=== PATIENT | female | born 1965 | race Asian ===

== ENCOUNTER 2016-05-12 19:06 | Emergency (ER) | payer BC, OTHER ==
[~2016-05-12] VITALS: Ht 167.6 cm; Wt 70.3 kg
[2016-05-12 19:15] VITALS: BP 137/94; PULSE 105; RESP 16; TEMP 98.2; O2SAT 98
--- NOTE | 2016-05-12 19:45 | NUR ---
Pt came in for cough, runny nose, body aches, low appetite and fever for four days. Pt rates her headache 09/21. Will continue to monitor. AAOx4. No distress noted.
--- NOTE | 2016-05-12 19:45 | NUR ---
Placed in hallway.
--- NOTE | 2016-05-12 19:45 | NUR ---
ER CURTAIN INSPECTOR assessing pt.
--- NOTE | 2016-05-12 19:45 | NUR ---
Note al in EDM - 05/13/16 at 0513 by BERENICE Pt came in for cough, runny nose, body aches, low appettite and fever for four days. Pt rates her headache 09/21. Will continue to monitor. AAOx4. No distress noted.
[2016-05-12] MEDS ORDERED: AMOXICILLIN/CLAVULANATE POTASSIUM 875 MG TABLET PO ONE (20:00)
[2016-05-12] MEDS ORDERED: IBUPROFEN 600 MG TABLET PO ONE (20:00)
[2016-05-12 20:08] VITALS: BP 137/94; PULSE 105; RESP 16; TEMP 98.2; O2SAT 98
--- NOTE | 2016-05-12 20:08 | NUR ---
Patient given written and verbal discharge instructions and verbalizes understanding. ER ESTIMATOR LUMBER discussed with patient the results and treatment provided. Given copies of tests performed in ER. Patient in stable condition. ID arm band removed. Rx of Tessalon, phenergan with codeine, and augmentin given. Patient educated on pain management and to follow up with PMD. Pain Scale 2/10. Opportunity for questions provided and answered.
== END 2016-05-12 20:08 | disposition home or self-care (01) ==
LOC: SED 19:06
DX: J01.10 Acute frontal sinusitis, unspecified (principal); I10 Essential (primary) hypertension
CPT/HCPCS: 99283